=== PATIENT | female | born 1970 | race Caucasian/White ===

== ENCOUNTER 2022-09-22 08:50 | Day surgery (SDC) | payer BC, OTHER ==
[2022-08-23 15:18] VITALS: BMI 34.0
[2022-09-22] MEDS ORDERED: LIDOCAINE HCL/PF 2% SDV 5ML VIAL ONE (08:54)
[2022-09-22] MEDS ORDERED: PROPOFOL 120 ML ONE (08:54)
[2022-09-22 09:14] VITALS: RESP 18
[2022-09-22 09:46] VITALS: TEMP 98
[2022-09-22 10:04] VITALS: BP 155/91; PULSE 77
== END 2022-09-22 10:09 | disposition home or self-care (01) ==
LOC: FASU-ENDO 08:50
PROVIDERS: ATTEND Internal Medicine Gastroenterology
PROC: 0DB68ZX Excision of Stomach, Via Natural or Artificial Opening Endoscopic, Diagnostic (ICD-10-PCS; 2022-09-22)
PROC: 0DB98ZX Excision of Duodenum, Via Natural or Artificial Opening Endoscopic, Diagnostic (ICD-10-PCS; principal; 2022-09-22 09:27)
DX: K29.50 Unspecified chronic gastritis without bleeding (principal); K44.9 Diaphragmatic hernia without obstruction or gangrene; R12 Heartburn
CPT/HCPCS: 81025; 88305-TC; 88342-TC